=== PATIENT | male | born 1950 | race Caucasian/White ===

== ENCOUNTER 2021-03-01 09:49 | Emergency (ER) | payer MEDICARE, SELFPAY ==
--- NOTE | ~2021-03-01 | US_ITS ---
US venous doppler LE RT DATE: 03/01/2021 10:49 INDICATION: Redness, swelling, warmth, pain of right lower extremity for 3 days TECHNIQUE: Real-time and color flow imaging and Doppler analysis of the veins of the right lower extr emity COMPARISON: None FINDINGS: The right greater saphenous vein is patent. There is spontaneous and phasic flow and normal augmentation and color flow signal and normal compression of the deep veins of the right leg. Prominent right groin lymph node nodes, largest measuring 4.0 x 2.6 x 0.8 cm. IMPRESSION: No evidence of deep venous thrombosis of right leg Prominent right groin lymph nodes Reviewed, dictated and finalized at [facility]. Reviewed, dictated and finalized at [facility].
[2021-03-01 10:06] VITALS: BP 140/84; PULSE 72; RESP 16; TEMP 36.8; O2SAT 97
[2021-03-01 11:00] LABS: Basophils Absolute Auto 0.1 K/mm3 (0.0-0.1); Basophils Percent Auto 0.3 % (0.2-1.2); Eosinophils Absolute Auto 0.1 K/mm3 (0-0.3); Eosinophils Percent Auto 0.9 % (0-4.4); Hematocrit 48.2 % (42.0-52.0); Hemoglobin 16.4 g/dL (14.0-18.0); Immature Granulocyte Absolute 0.06 K/mm3 (0.00-0.031); Immature Granulocyte Percent A 0.4 % (0-0.5); Lymphocytes Absolute Auto 2.14 K/mm3 (0.9-3.2); Mean Corpuscular Hemoglobin 29.5 pg (26-34); Mean Corpuscular Volume 86.8 fl (80-100); Mean Platelet Volume 9.7 fl (7.4-10.4); Monocytes Absolute Auto 1.1 K/mm3 (0.1-0.6); Monocytes Percent Auto 7.4 % (2.6-8.5); Neutrophils Absolute Auto 11.7 K/mm3 (1.3-6.7); Platelet Count Result 264 k/mm3 (150-375); Red Blood Count 5.55 M/mm3 (4.6-6.20); Red Cell Distribution Width 16.7 % (11.5-14.5); White Blood Count 15.3 K/mm3 (4.5-10.0)
[2021-03-01 11:11] LABS: Anion Gap 7 mmol/L (8-16); Blood Urea Nitrogen 15 mg/dL (9-20); Carbon Dioxide 26 mmol/L (22-30); Chloride 101 mmol/L (98-107); Estimated CRCL calculation 85 ml/min; Estimated Glomerular Filt Rate > 60; Glucose 121 mg/dL (75-110); Potassium 3.8 mmol/L (3.4-5.0); Sodium 134 mmol/L (137-145)
[2021-03-01 11:16] VITALS: BP 136/82; PULSE 63; RESP 16; O2SAT 98
--- NOTE | 2021-03-01 12:01 | ED.EXTPRO ---
HPI - Extremity Problem General Chief complaint: Extremity Problem,Nontraumatic Stated complaint: R LEG REDNESS SWELLING Time Seen by Provider: 03/01/21 10:11 History of Present Illness HPI Narrative: Patient is a 70-year-old male who presents ER with redness to his right lower extremity aches streaking up into his groin. Reports he was mowing his lawn and thought he got stung by a bee. He had a little break in his skin and has since increasing redness and is slightly tender. No drainage. No fevers or chills or sweats. No decrease in range of motion. Patient reports he has very thin skin and often breaks it. Related Data Home Medications Medication Instructions Recorded Confirmed aspirin PO 03/01/21 cholecalciferol (vitamin D3) 03/01/21 [D-3-5] cyanocobalamin (vitamin B-12) mcg 03/01/21 [Vitamin B-12] folic acid 03/01/21 ramipril mg PO 03/01/21 Allergies Allergy/AdvReac Type Severity Reaction Status Date / Time barley Allergy Unknown Verified 03/01/21 10:15 oats Allergy Unknown Verified 03/01/21 10:15 Penicillins Allergy Hives Verified 03/01/21 10:15 wheat Allergy Unknown Verified 03/01/21 10:15 Review of Systems Review of Systems: All systems reviewed & are unremarkable except as noted in HPI and below Constitutional: Constitutional: Denies chills, Denies fever(s) and Denies weakness Cardiovascular: Cardiovascular: Denies chest pain Respiratory: Respiratory: Denies cough Musculoskeletal: Musculoskeletal: Denies arthralgias, Denies joint swelling and Denies muscle cramps Integumentary/Breasts: Comments: Swelling of the right lower extremity with redness consistent with cellulitis. PMFSH Past Medical History Medical History (Updated 03/01/21 @ 12:06 by Kevin Page MD) AAA (abdominal aortic aneurysm) Celiac disease Surgical History Surgical History (Updated 03/01/21 @ 12:03 by Kevin Page MD) History of AAA (abdominal aortic aneurysm) repair Social History Social History (Updated 03/01/21 @ 12:03 by Kevin Page MD) Smoking status: Current every day smoker Substance use: never Exam Narrative: Exam Narrative: GENERAL: Well-appearing, well-nourished, and in no acute distress. HEAD: Normocephalic, atraumatic. CHEST: Clear to auscultation. No respiratory distress. HEART: Regular rate and rhythm. Normal peripheral pulses. ABDOMEN: Soft, nontender, nondistended. EXTREMITIES: Normal range of motion. 2+ edema right lower extremity when compared to left. SKIN: Warm, dry, cellulitis of the right lower extremity with lymphangitic streaking up the thigh.. NEURO: Alert and oriented x3. PSYCH: Normal mood and affect. Course Course Emergency Course: Patient informed of results. Discharge home with Bactrim. Follow-up with PCP. Vital Signs Vital signs: Vital Signs Temperature 98.2 F 03/01/21 10:06 Pulse Rate 72 03/01/21 10:06 Respiratory Rate 16 03/01/21 10:06 Blood Pressure 140/84 03/01/21 10:06 Pulse Oximetry 97 03/01/21 10:06 Temperature 98.2 F 03/01/21 10:06 Pulse Rate 63 03/01/21 11:16 Respiratory Rate 16 03/01/21 11:16 Blood Pressure 136/82 03/01/21 11:16 Pulse Oximetry 98 03/01/21 11:16 MDM - Extremity (Nontraumatic) Lab Data Result diagrams: 03/01/21 10:52 03/01/21 10:52 Labs: Lab Results 03/01/21 03/01/21 Range/Units 10:52 10:52 WBC 15.3 H (4.5-10.0) K/mm3 RBC 5.55 (4.6-6.20) M/mm3 Hgb 16.4 (14.0-18.0) g/dL Hct 48.2 (42.0-52.0) % MCV 86.8 (80-100) fl MCH 29.5 (26-34) pg MCHC 34.0 (32-36) g/dl RDW 16.7 H (11.5-14.5) % Plt Count 264 (150-375) k/mm3 MPV 9.7 (7.4-10.4) fl Immature Gran % (Auto) 0.4 (0-0.5) % Neut % (Auto) 77.0 H (45.5-73.1) % Lymph % (Auto) 14.0 L (18.3-44.2) % Nuckolls % (Auto) 7.4 (2.6-8.5) % Eos % (Auto) 0.9 (0-4.4) % Baso % (Auto) 0.3 (0.2-1.2) % Lymph # (Auto) 2.14 (0.9-3.2) K/mm
[2021-03-01 12:25] VITALS: BP 131/84; PULSE 79; RESP 18; O2SAT 98
== END 2021-03-01 12:27 | disposition home or self-care (01) ==
PROVIDERS: Emergency Provider Emergency Medicine; PCP Internal Medicine
DX: L03.115 Cellulitis of right lower limb (principal); F17.200 Nicotine dependence, unspecified, uncomplicated; Z79.82 Long term (current) use of aspirin
CPT/HCPCS: 36415; 80048; 85025; 93971; 99284

== ENCOUNTER 2025-06-11 23:29 | Emergency (ER) | payer MEDICARE, SELFPAY ==
[2025-06-11] MEDS: OXYMETAZOLINE HCL 0.05% NAS 15 ML BTL (*BKC) 1 SPRAY NASAL (23:47)
--- NOTE | 2025-06-11 23:59 | ED.EPISTAXIS ---
HPI - Epistaxis General Chief complaint: Epistaxis Stated complaint: Nosebleed x 4 hours Time Seen by Provider: 06/11/25 23:42 History of Present Illness HPI Narrative: Patient is a 74-year-old male presents to the ER with a nose bleed started around 4:30 p.m. this afternoon. He reports the nose bleed was intermittent until around 8:00 p.m. when he sneezed and all hell broke loose. Patient reports the bleeding has not stopped and it has been coming from both nares. He denies any blood thinner use but reports he takes an aspirin every day. Patient endorses a significant medical history in occluding right femoral bypass surgery, cellulitis, high blood pressure, celiac disease, hyperlipidemia, AAA repair, and congestive heart failure. Related Data Home Medications ?Medication ?Instructions ?Recorded ?Confirmed ?Last Taken ?Type aspirin 81 mg tablet PO 03/01/21 Unknown History cholecalciferol (vitamin D3) 125 03/01/21 Unknown History mcg (5,000 unit) capsule cyanocobalamin (vitamin B-12) 500 mcg 03/01/21 Unknown History mcg tablet (Vitamin B-12) folic acid 400 mcg tablet 03/01/21 Unknown History ramipril 10 mg tablet mg PO 03/01/21 Unknown History Allergies Allergy/AdvReac Type Severity Reaction Status Date / Time barley Allergy Unknown Verified 03/01/21 10:15 oats Allergy Unknown Verified 03/01/21 10:15 Penicillins Allergy Hives Verified 03/01/21 10:15 wheat Allergy Unknown Verified 03/01/21 10:15 Review of Systems Review of Systems: All systems reviewed & are unremarkable except as noted in HPI and below PMFSH Past Medical History Medical History Celiac disease AAA (abdominal aortic aneurysm) Surgical History Surgical History History of AAA (abdominal aortic aneurysm) repair Social History Social History Smoking status: Current every day smoker Substance use: never Exam Narrative: GENERAL: Well appearing, well-nourished, non-toxic, in no acute distress. HEAD: Normocephalic, atraumatic. Bright red oozing bilateral nares. No visible bleeding in the back patient's mouth. + dark dried blood in pt's mouth, tongue coated with dark red blood NECK: Supple. No adenopathy, no masses. RESPIRATORY: Airway patent, respirations nonlabored. Clear to auscultation bilaterally, no rales, rhonchi, wheezing. CARDIOVASCULAR: Regular rate and rhythm without murmurs, rubs, or gallops. Peripheral pulses 2+ and equal bilaterally. ABDOMINAL: Soft, nontender, nondistended, no hepatosplenomegaly. Normoactive BS. MUSCULOSKELETAL: Moves all extremities. Strength/ROM intact without gross deformities. SKIN: Warm, dry, normal color. No rashes. NEURO: A&O X3. Speech clear. Cranial nerves II-XII intact. No ataxic movements. PSYCHIATRIC: Appropriate mood and affect. Normal interaction. MDM - Epistaxis MDM Narrative Medical decision making narrative: Patient is a 74-year-old male presents to the ER with a nose bleed started around 4:30 p.m. this afternoon. He reports the nose bleed was intermittent until around 8:00 p.m. when he sneezed and all hell broke loose. Patient reports the bleeding has not stopped and it has been coming from both nares. He denies any blood thinner use but reports he takes an aspirin every day. Patient endorses a significant medical history in occluding right femoral bypass surgery, cellulitis, high blood pressure, celiac disease, hyperlipidemia, AAA repair, and congestive heart failure. Labs Ordered: None necessary Medications Ordered: Afrin nasal spray, TXA intranasal, LET gel intranasal Diagnosis: Anterior nose bleed Consults: ENT (outpatient) Patient Education/Shared MDM: Patient reports he is not on blood thinners but was recently on heparin when he was admitted to the hospital at [facility]. Afrin was injected into both of patient's nostrils but his nose continued to ooze blood. Tranexamic Acid was placed on got into each of patient's nostrils. His right nostril ceased bleeding but his left nostril continued to bleed. Let gel was placed on to a rhino rocket and inserted into patient's left nostril. Patient's nose bleed subsided following around a rocket administration. He was strongly advised to maintain hydration status upon discharge and follow-up with ENT in 2 days for rhino rocket removal. Patient's left nostril continues to ooze a small amount of blood following rhino rocket administration. He will be discharged home with a prescription for Afrin for his right nostril in case that side continues to bleed once he is discharged home. Strict return precautions provided. Patient verbalized understanding and is in agreement with plan. Vital signs stable at time of discharge. All questions answered. Differential Diagnosis Differential diagnosis: Likely anterior epistaxis and posterior epistaxis Discharge Plan Discharge Clinical Impression: Epistaxis Patient Disposition: Home Condition: Stable Instructions: Antibiotic Form, Nosebleed (ED) Additional Instructions: Please return to the ER with any worsening symptoms. Follow-up with ear nose and throat in the next 2-3 days for rhino rocket removal. Take all medications as prescribed, including regularly scheduled medications. You can spray Afrin in to your right nostril if bleeding resumes. Patient Language: Mohawk Prescriptions: New oxymetazoline [Afrin (oxymetazoline)] 0.05 % spray,non-aerosol 2 spray intranasal Q12H PRN (Reason: nasal congestion) 5 Days Qty: 22 0RF Rx Instructions: Administer to R nostril as needed if bleeding returns No Action cyanocobalamin (vitamin B-12) [Vitamin B-12] 500 mcg Tablet cholecalciferol (vitamin D3) [D-3-5] 125 mcg (5,000 unit) Capsule folic acid 400 mcg Tablet aspirin 81 mg Tablet PO ramipril 10 mg Tablet PO sulfamethoxazole-trimethoprim [Bactrim DS] 800-160 mg tablet 1 tablet PO Q12H Qty: 20 0RF Follow-up/Referrals: [facility] [Provider Group] Referral Note: ENT Julián Kaur MD [Physician, Ear, Nose, Throat] Referral Note: ENT Emily,Fermin Cuadra MD [Non-Staff, Otolaryngology (ENT)] Referral Note: ENT Flash Wheatley MD [Physician, Ear, Nose, Throat] Referral Note: ENT Zaid Macias MD [Physician, Ear, Nose, Throat] PHYSICIAN NOT ON STAFF,NONSTAFF [Primary Care Provider] Time of Disposition: 02:11
[2025-06-12] MEDS: TRANEXAMIC ACID 1,000 MG/10 ML AMPUL 10 MG TOPICAL (01:23)
== END 2025-06-12 02:35 | disposition home or self-care (01) ==
PROVIDERS: Emergency Provider Registered Nurse
DX: R04.0 Epistaxis (principal); E78.5 Hyperlipidemia, unspecified; K90.0 Celiac disease; I50.9 Heart failure, unspecified; I11.0 Hypertensive heart disease with heart failure
CPT/HCPCS: 99283; A9270; J3290